=== PATIENT | male | born 1980 | race Caucasian/White ===

== ENCOUNTER → 2018-05-19 10:06 | Outpatient (CLI) | payer OTHER, SELFPAY ==
--- NOTE | 2018-05-19 | DI.US.S_ITS ---
PROCEDURE: US THYROID INDICATIONS: LEFT THYROID MASS TECHNIQUE: Real-time scanning was performed of the thyroid gland, with image documentation. COMPARISON: None. FINDINGS: Right: Thyroid lobe measures 1.5 x 1.6 x 4.9 cm, and is homogeneous in echotexture. Left: Thyroid lobe measures 0.9 x 1.6 x 4.5 cm, and is homogenous in echotexture. Isthmus: 3 mm thick. Nodule number: 1 Location: Right mid posteriorly Size: 6 x 8 x 9 mm . Composition: Solid Echogenicity: Hypoechoic Shape: Oval Margins: Smooth Echogenic foci: Punctate Total points: 5 ACR TI-RADS category: 4 Nodule number: 2 Location: Left Isthmus Size: 0.7 x 1.4 x 2.1 cm. Composition: Solid Echogenicity: Hypoechoic Shape: Oval Margins: Smooth Echogenic foci: Punctate Total points: 5 ACR TI-RADS category: 4 IMPRESSION: 1. Category 4 nodule in the right lobe of thyroid is subcentimeter in size. No biopsy indicated. 2. Category 4 nodule in the left Isthmus exceeds 1.5 cm in maximum diameter. Ultrasound guided FNA sampling recommended. ACR TI-RADS definitions and recommendations: TI-RADS 1 (benign): 0 points. FNA not needed. TI-RADS 2 (not suspicious): 2 points. FNA not needed. TI-RADS 3 (mildly suspicious): 3 points. * FNA if 2.5 cm or larger, follow up if 1.5 cm or larger (at 1, 3, and 5 years). TI-RADS 4 (moderately suspicious): 4-6 points. * FNA if 1.5 cm or larger, follow up if 1 cm or larger (at 1, 2, 3, and 5 years). TI-RADS 5 (highly suspicious): 7 points or more. * FNA if 1 cm or larger, follow up if 0.5 cm or larger (every year for 5 years). Dictated by: Tom Livingston M.D. on 05/19/2018 at 11:39 Approved by: Tom Livingston M.D. on 05/19/2018 at 11:45
== END ==
PROVIDERS: PCP Family Medicine; Visit Provider Otolaryngology
DX: E04.2 Nontoxic multinodular goiter (principal)
CPT/HCPCS: 76536

== ENCOUNTER → 2018-06-21 08:45 | Outpatient (CLI) | payer OTHER, SELFPAY ==
--- NOTE | 2018-06-21 | PATH_ITS ---
Note [facility] Accession Number: [id number] TESTS RESULT FLAG UNITS REF RANGE LAB Clinician Provided Cytology Information No. of containers..01 ThinPrep Vial No. of containers..08 Previously Prepared Cytology Slide 01 LEFT THYROID NODULE DIAGNOSIS: [A] 02 LEFT THYROID NODULE SUSPICIOUS FOR MALIGNANCY. B[place] CATEGORY V. SUSPICIOUS FOR PAPILLARY CARCINOMA. SPECIMEN CONSISTS OF FOLLICULAR CELLS WITH NUCLEAR ENLARGEMENT, NUCLEAR PALLOR WITH GROOVES. INTRANUCLEAR PSEUDOINCLUSIONS ARE RARE. THIS PATTERN IS SUSPICIOUS FOR PAPILLARY CARCINOMA. Pathologist ICD10: 02 R89.6 02 Oneil Ramírez MD, Pathologist NPI- [id number] Demetrius Jimenez, Dtp Operator ([facility]) 01 30 CC, PINK, CLEAR RECEIVED: 4 ALCOHOL FIXED AND 4 QUICK STAINED SLIDES. /VDU FLAG LEGEND: L-Low Normal,H-High Normal,LL-Alert Low,HH-Alert High <-Panic Low,>-Panic High,A-Abnormal,AA-Critical Abnormal Performed at: 01 =Z [facility] [address], [place] [address] Devonte Chanel MD, [address] [facility] [address] [place] [id number] Maxim Trujillo MD, Performed at: 01 [facility] [address], [place], [place] [id number] MD Devonte Chanel MD Phone: [phone]
--- NOTE | 2018-06-21 | DI.US.S_ITS ---
PROCEDURE: US FINE NEEDLE ASPIRATION INDICATIONS: THYROID NODULE TECHNIQUE: The indications, alternatives, benefits, risks, and complications of the procedure were explained to the patient. Written informed consent was obtained and placed in the chart. The thyroid region was examined sonographically and a site was chosen for ultrasound guided percutaneous sampling. The skin was prepared and draped in the usual fashion, and anesthetized with 1% lidocaine infiltrated from the skin down to the thyroid gland. Multiple passes were then performed, with contents emptied into an appropriate pathology specimen container. A bandage was applied to the area of access at completion of the study. COMPARISON: [facility], US, US THYROID, 05/19/2018, 10:43. FINDINGS: Location(s) of lesion(s) sampled: Left thyroid lobe, middle third, near the isthmus [place]: 25 gauge hypodermic needles. Number of passes: 5 Medications: 1% lidocaine for local anaesthesia. Complications: None. IMPRESSION: Successful ultrasound-guided thyroid nodule fine needle aspiration, with cytology results pending. Please see chart below for management recommendations based on cytology results. [place] [facility] ReportingRecommendationsNon-diagnostic* Repeat US-guided FNA, with on-site cytology evaluation if possible. * Repeated non-diagnostic nodules without high suspicion US features: close observation vs surgical consult. * Consider surgery if nodule has high suspicion US features, grows >20% in 2 dimensions on followup, or patient has clinical risk factors for malignancy. Benign* If nodule has high suspicion US features: repeat US and FNA within 12 months. * If nodule has low to intermediate suspicion US features: repeat US at 12-24 months. If nodule grows (20% increase in at least 2 dimensions, with minimal increase of 2 mm or >50% change in volume), or development of new suspicious US features, then repeat FNA or continue followup. * If nodule has very low suspicion US features: followup US at >24 months. Atypia of undetermined significance, follicular lesion of undetermined significanceRepeat FNA, molecular testing, followup US, or surgical consult.Follicular neoplasm, suspicious for follicular neoplasmSurgical consult; also consider molecular testing. Suspicious for malignancySurgical consult.MalignantSurgical consult. Dictated by: Misha Lee M.D. on 06/21/2018 at 11:53 Approved by: Misha Lee M.D. on 06/21/2018 at 11:54
== END ==
PROVIDERS: PCP Family Medicine; Visit Provider Otolaryngology
DX: E04.1 Nontoxic single thyroid nodule (principal)
CPT/HCPCS: 10022; 76942

== ENCOUNTER → 2018-07-28 10:42 | Outpatient (CLI) | payer OTHER, SELFPAY ==
--- NOTE | 2018-07-28 | DI.US.S_ITS ---
PROCEDURE: US SOFT TISSUE HEAD AND NECK INDICATIONS: LYMPHADENOPATHY TECHNIQUE: Real-time scanning was performed of the neck region of interest, with image documentation. COMPARISON: [facility], , US FINE NEEDLE ASPIRATION, 06/21/2018, 9:40. [facility], , US THYROID, 05/19/2018, 10:43. FINDINGS: There are prominent lymph nodes seen bilaterally. On the left in the submandibular region there is a 2.1 x 0.7 x 1.8 cm lymph node with minimal internal vascularity. At the area adjacent to the jugular vein anteriorly on the left there is a 0.4 x 0.7 x 2.0 cm lymph node with mild increased vascularity. On the right at the submandibular area there is a 0.8 x 2.9 x 3.6 cm without elevated vascularity and adjacent to the anterior aspect of the right jugular vein there is a 2.1 x 0.4 x 1.0 cm lymph node with mildly increased vascularity. IMPRESSION: Lymph nodes that appear prominent in size, which may simply be reactive lymph nodes, are noted with the largest at the right submandibular area measuring up to 0.8 x 3.6 x 2.9 cm. Depending on the clinical status followup by sequential physical examination may be warranted, versus surgical excision for histology, or fine needle cytology aspiration. Dictated by: Misha Lee M.D. on 07/28/2018 at 13:56 Approved by: Misha Lee M.D. on 07/28/2018 at 14:00
== END ==
PROVIDERS: Visit Provider Otolaryngology
DX: R59.0 Localized enlarged lymph nodes (principal)
CPT/HCPCS: 76536

== ENCOUNTER → 2018-07-29 08:43 | Oncology outpatient (ONC) | payer OTHER, SELFPAY ==
[2018-07-29 09:21] VITALS: BP 115/71; PULSE 87; RESP 18; TEMP 36.2; O2SAT 97
--- NOTE | 2018-07-29 09:49 | ONC.CONS ---
History of Present Illness - Data of Consult Primary Care Provider: Kade Dumont MD - Consult Narrative Reason for consult: Left thyroid nodule suspicious for papillary carcinoma. Narrative: Tom Garza is a 37 year old male without significant past medical history except hyperlipidemia. Patient reported that probably around January or March of 2018, he noticed a left-sided thyroid nodule. He was evaluated initially by Dr. Quincy Gamble who referred the patient to Dr. Aubrey Krishnan. Patient underwent thyroid ultrasound study on May 19, 2018 showing dominant nodule in the left isthmus 2.1 cm, solid, hyperechoic with punctate calcifications but smooth margins, and a smaller nodule in the right side less than 1 cm. And on June 21, 2018 patient underwent fine-needle aspiration under the ultrasound guidance of the left medial lobe/isthmus nodule. And the cytology showed Betheda category 5, suspicious for malignancy, possible papillary. On July 28, 2018 patient underwent ultrasound study of the soft tissue of the head and neck. At this study showed lymph nodes that appear prominent in size which may simply be reactive lymph nodes with the largest at the right submandibular area measuring up to 0.8 x 3.6 x 2.9 cm. Clinically patient is largely asymptomatic except he said mildly fatigued recently. He denies any weight loss denies any sweating denies any palpitation denies any nausea or vomiting. No diarrhea or constipation. CC: Marcia Watts MD Patient reports pain?: No Home Medications and Allergies Home Medications Medication Instructions Recorded Confirmed Type No Known Home Medications 04/02/18 07/09/18 History Allergies Allergy/AdvReac Type Severity Reaction Status Date / Time No Known Allergies Allergy Uncoded 02/03/18 12:48 Medical History - Medical, Surgical, Family History Medical History: Medical History (Last Updated 07/29/18 @ 09:51 by Marcia Watts MD) Knee pain (Acute) Mass in neck (Acute) Neoplasm of uncertain behavior (Chronic) Status post appendectomy () Onset Date: 10/30/17 Hyperlipidemia Depression Onset Date: 2006 Tinnitus of both ears Onset Date: 2006 Chickenpox Onset Date: Unknown Surgical History: Surgical History (Last Reviewed 04/02/18 @ 12:00 by Quincy Cameron MD) Hx of appendectomy Onset Date: 09/2017 Family History: Family History (Last Reviewed 04/02/18 @ 12:00 by Quincy Cameron MD) Father Age: 69 Leukemia High cholesterol Grandfather Heart disease Stroke Grandfather Heart disease Sister Family history of thyroid problem Sister Arthritis - Social History Smoking Status: Never smoker Review of Systems All systems PM: reviewed and no additional remarkable complaints except as stated Exam Vital signs: Last Vital Signs Temp 97.2 F L 07/29/18 09:21 Pulse 87 07/29/18 09:21 Resp 18 07/29/18 09:21 BP 115/71 07/29/18 09:21 Pulse Ox 97 07/29/18 09:21 Narrative: ECO Constitutional: Well developed, well nourished, not in any acute respiratory distress, average body habitus, well groomed, pleasant and cooperative. HEENT: Normocephalic atraumatic. Extraocular muscle movement intact. Pupils are round, equal and reactive to light and accommodations. Anicteric sclera. No hearing difficulty; Oral mucus membrane moist and without ulcers. Neck: Supple, symmetrical, and tracheal midline; A 1 cm nodule palpable in the left thyroid gland, non-tender, and freely movable. Respiratory: No use of accessory muscles. Clear to auscultation, and no wheezes or rales or rubs. Cardiovascular: Regular rate and rhythm, S1 and S2 normal, no murmurs gallops or rubs. No JVD. No pitting edema of lower extremities. Abdomen: Soft, nontender, non-distended, bowel sounds normal, no palpable organomegaly, no hernia, no palpable masses. Lower extremities: No palpable pedal edema. Lymphatic: no palpable lymph nodes in the neck, axillae, or groins. Musculoskeletal: normal gait and station, no clubbing, no cyanosis, no pitting edema. Skin: no rashes, no ulcers, no petechiae Neurological: Awake and alert and oriented x3. CN II-XII grossly intact. No focal motor or sensory deficit. Psychiatric: Good judgment, good insight, normal affect, normal thought process, cooperative, no depression, no anxiety. Results - Labs Reviewed. Assessment and Plan (1) Thyroid nodule Current visit: Yes Status: Acute Left thyroid nodule suspicious for papillary carcinoma after a fine-needle aspiration. I talked with patient that I would highly recommend that patient continue follow-up with Dr. Aubrey Krishnan for discussion of surgical removal. I also encouraged the patient to follow up with Dr. Maldonado, the productivity engineer for evaluation. I talked with the patient that it is the recommendation from NCCN guidelines that surgery be the treatment of choice followed by evaluation for the indication for possible radio iodine treatment. If it is a radical with total thyroidectomy, patient will lead lifelong levothyroxine replacement therapy. Forty thyroid carcinoma, patient really will have a good prognosis. Patient voiced understanding. I have ordered labs including CBC, CMP, and a thyroid globulin antibody, at thyroid globulin protein level. I will have the patient come back in about 4 weeks and we will repeat the same set of labs.
--- NOTE | 2018-07-30 10:01 | ONC.NAV ---
Late Entry: Visit 07/29/18 Description: New Pt Intro Activity: Met with pt briefly prior to his initial provider consult visit. Pt recently had a biopsy of a nodule found on his thyroid gland. He's here today to consult with Dr. Watts about recommendations for next steps. Introduced myself as the Patient Rafael/ETCHER HAND, provided services card, and just briefly discussed available resources and support available. No immediate needs were identified at this time. Plan: ETCHER HAND encouraged pt to contact me in the future, should he have any further questions or needs at that time.
== END ==
PROVIDERS: PCP Student in an Organized Health Care Education/Training Program; Visit Provider Internal Medicine Hematology & Oncology
DX: E04.1 Nontoxic single thyroid nodule (principal)
CPT/HCPCS: 99203; 99213

== ENCOUNTER → 2018-08-03 08:29 | Outpatient (CLI) | payer OTHER, SELFPAY ==
[2018-08-03 08:59] LABS: Add Manual Diff / Slide Review NO; Basophils Percent Auto 0.8 % (0-2); Eosinophils Percent Auto 2.9 % (2-4); Hematocrit 44.5 % (41-53); Hemoglobin 15.1 g/dL (13.5-17.5); Lymphocytes Percent Auto 30.2 % (25-40); Mean Corpuscular HGB Conc 33.8 % (30-36); Mean Corpuscular Hemoglobin 30.9 PG (26-34); Mean Corpuscular Volume 91.4 fL (80-100); Monocytes Percent Auto 8.1 % (3-14); Neutrophils Absolute Auto 2600 /uL (3000-5900); Platelet Count 229 X10^3/uL (150-400); Red Blood Cell Count 4.87 X10^6/uL (4.5-5.9); Red Cell Distribution Width 12.4 % (11.6-14.8); White Blood Cell Count 4.5 X10^3/uL (4.5-11.0)
[2018-08-03 09:19] LABS: Alanine Aminotransferase 25 IU/L (21-72); Albumin 4.4 g/dL (3.5-5.0); Albumin Globulin Ratio 1.6 (1.0-2.8); Alkaline Phosphatase 45 U/L (38-126); Aspartate Aminotransferase 21 IU/L (17-59); BUN Creatinine Ratio 14.3 (6-22); Bilirubin Total 0.9 mg/dL (0.2-1.3); Blood Urea Nitrogen 10 mg/dL (9-20); Calcium 9.3 mg/dL (8.4-10.2); Carbon Dioxide 33 mmol/L (22-32); Chloride 102 mmol/L (98-107); Estimated Glomerular Filt Rate > 60.0 mL/min (>60); Globulin 2.8 g/dL (1.7-4.1); Glucose 88 mg/dL (70-100); HEMOLYSIS 23 (0-50); Potassium 4.5 mmol/L (3.4-5.1); Sodium 142 mmol/L (137-145); Total Protein 7.2 g/dL (6.3-8.2)
[2018-08-03 10:38] LABS: Thyroid Stimulating Hormone 0.89 uIU/mL (0.47-4.68)
[2018-08-03 19:46] LABS: Free T3, Triiodothyronine Free 4.06 pg/mL (2.77-5.27); Free T4, Direct Thyroxine 1.07 ng/dL (0.78-2.19)
[2018-08-04 15:02] LABS: Anti Thyroglobulin Antibody < 1 IU/mL (< 2); Thyroid Peroxidase Antibodies < 1 IU/mL (< 9)
[2018-08-04 17:55] LABS: Triiodothyronine T3 Total 117 ng/dL (76-181)
== END ==
PROVIDERS: PCP Student in an Organized Health Care Education/Training Program; Visit Provider Internal Medicine Hematology & Oncology
DX: E04.1 Nontoxic single thyroid nodule (principal)
CPT/HCPCS: 36415; 80053; 84432; 84439; 84443; 84480; 84481; 85025; 86376; 86800

== ENCOUNTER → 2020-08-31 13:27 | Outpatient (CLI) | payer OTHER, SELFPAY ==
[2020-09-03 07:47] LABS: COVID19 Sendout Not Detected (Not Detect)
== END ==
PROVIDERS: PCP Student in an Organized Health Care Education/Training Program; Visit Provider Physician Assistant
DX: Z11.59 Encounter for screening for other viral diseases (principal)
CPT/HCPCS: 87635

== ENCOUNTER → 2021-01-23 07:59 | Outpatient (CLI) | payer OTHER, SELFPAY ==
[2021-01-23] MEDS: COVID-19 VACC #1, MRNA(MOD) 100 MCG/0.5 ML VIAL IM (08:06)
== END ==
PROVIDERS: PCP Student in an Organized Health Care Education/Training Program; Visit Provider Internal Medicine
DX: Z23 Encounter for immunization (principal)
CPT/HCPCS: 0011A; 91301

== ENCOUNTER → 2021-02-20 07:50 | Outpatient (CLI) | payer OTHER, SELFPAY ==
[2021-02-20] MEDS: COVID-19 VACC #2, MRNA(MOD) 100 MCG/0.5 ML VIAL IM (07:58)
== END ==
PROVIDERS: PCP Student in an Organized Health Care Education/Training Program; Visit Provider Internal Medicine
DX: Z23 Encounter for immunization (principal)
CPT/HCPCS: 0012A; 91301

== ENCOUNTER → 2023-09-04 08:26 | Outpatient (CLI) | payer OTHER, SELFPAY ==
[2023-09-04 08:53] LABS: Add Manual Diff / Slide Review NO; Basophils Absolute Auto 100 /uL (0-100); Basophils Percent Auto 0.9 % (0-2); Eosinophils Absolute Auto 100 /uL (0-450); Eosinophils Percent Auto 2.6 % (2-4); Hematocrit 41.9 % (41-53); Hemoglobin 14.1 g/dL (13.5-17.5); Lymphocytes Absolute Auto 1900 /uL (1100-4500); Lymphocytes Percent Auto 33.4 % (25-40); Mean Corpuscular HGB Conc 33.8 % (30-36); Mean Corpuscular Hemoglobin 31.1 PG (26-34); Monocytes Absolute Auto 500 /uL (0-900); Monocytes Percent Auto 8.3 % (3-14); Neutrophils Absolute Auto 3100 /uL (1500-7000); Neutrophils Percent Auto 54.8 % (50-75); Platelet Count 283 X10^3/uL (150-400); Red Blood Cell Count 4.55 X10^6/uL (4.5-5.9); Red Cell Distribution Width 12.7 % (11.6-14.8); White Blood Cell Count 5.6 X10^3/uL (4.5-11.0)
[2023-09-04 09:05] LABS: Hemoglobin A1C% w Est Avg Glu 5.5 % (4.0-6.0)
[2023-09-04 09:25] LABS: Alanine Aminotransferase 15 IU/L (<50); Albumin 4.1 g/dL (3.5-5.0); Albumin Globulin Ratio 1.6 (1.0-2.8); Alkaline Phosphatase 43 U/L (38-126); Aspartate Aminotransferase 18 IU/L (17-59); BUN Creatinine Ratio 17.3 (6-22); Bilirubin Total 0.5 mg/dL (0.2-1.3); Blood Urea Nitrogen 13 mg/dL (9-20); Calcium 9.6 mg/dL (8.4-10.2); Carbon Dioxide 30 mmol/L (22-32); Chloride 105 mmol/L (98-107); Cholesterol 193 mg/dL (140-199); Estimated Glomerular Filt Rate > 60 mL/min (>60); Globulin 2.5 g/dL (1.7-4.1); Glucose 90 mg/dL (70-100); HDL Cholesterol 42 mg/dL (40-60); HEMOLYSIS < 15 (0-50); LDL Cholesterol Calculated 137 mg/dL (<100); Potassium 4.6 mmol/L (3.4-5.1); Sodium 141 mmol/L (137-145); Total Protein 6.6 g/dL (6.3-8.2); Triglycerides 71 mg/dL (35-150)
== END ==
PROVIDERS: PCP Family Medicine; Referring Provider Family Medicine; Visit Provider Family Medicine
DX: Z00.00 Encounter for general adult medical examination without abnormal findings (principal); E78.2 Mixed hyperlipidemia; E03.9 Hypothyroidism, unspecified
CPT/HCPCS: 36415; 80053; 80061; 83036; 85025

== ENCOUNTER → 2024-03-09 08:41 | Outpatient (CLI) | payer OTHER, SELFPAY ==
--- NOTE | 2024-03-09 08:43 | DI.RAD.S_ITS ---
PROCEDURE: XR CHEST 2V INDICATIONS: Cough TECHNIQUE: 2 views of the chest were acquired. COMPARISON: None. FINDINGS: Surgical changes and devices: None. Lungs and pleura: Subtle pulmonary radiopacities are present at the right lung base only visualized on the frontal view. Mediastinum: Mediastinal contours are normal. Heart size is normal. Bones and chest wall: No suspicious bony abnormalities. Soft tissues appear unremarkable. IMPRESSION: Right basilar pulmonary radiopacities, likely within the right middle lobe. Short interval followup is recommended with resolution of the patient's symptoms to ensure there is no underlying pulmonary neoplasm. Dictated by: Nasra Montanez M.D. on 03/09/2024 at 9:57 Approved by: Nasra Montanez M.D. on 03/09/2024 at 10:19
== END ==
PROVIDERS: PCP Family Medicine; Referring Provider Nurse Practitioner Family; Visit Provider Nurse Practitioner Family
DX: R05.9 Cough, unspecified (principal)
CPT/HCPCS: 71046

== ENCOUNTER → 2025-01-10 07:27 | Outpatient (CLI) | payer OTHER, SELFPAY ==
[2025-01-10 08:10] LABS: Add Manual Diff / Slide Review NO; Basophils Absolute Auto 100 /uL (0-100); Basophils Percent Auto 1.2 % (0-2); Eosinophils Absolute Auto 100 /uL (0-450); Eosinophils Percent Auto 3.2 % (2-4); Hematocrit 44.7 % (41-53); Lymphocytes Absolute Auto 1700 /uL (1100-4500); Lymphocytes Percent Auto 36.9 % (25-40); Mean Corpuscular HGB Conc 33.5 % (30-36); Mean Corpuscular Volume 92.7 fL (80-100); Monocytes Absolute Auto 400 /uL (0-900); Monocytes Percent Auto 8.7 % (3-14); Neutrophils Absolute Auto 2300 /uL (1500-7000); Platelet Count 245 X10^3/uL (150-400); Red Blood Cell Count 4.82 X10^6/uL (4.5-5.9); Red Cell Distribution Width 12.9 % (11.6-14.8); White Blood Cell Count 4.6 X10^3/uL (4.5-11.0)
[2025-01-10 08:54] LABS: BUN Creatinine Ratio 17.7 (6-22); Blood Urea Nitrogen 14 mg/dL (9-20); Calcium 9.5 mg/dL (8.4-10.2); Carbon Dioxide 30 mmol/L (22-32); Chloride 102 mmol/L (98-107); Cholesterol 235 mg/dL (140-199); Estimated Glomerular Filt Rate > 60 mL/min (>60); Glucose 81 mg/dL (70-100); HDL Cholesterol 48 mg/dL (40-60); HEMOLYSIS < 15 (0-50); LDL Cholesterol Calculated 171 mg/dL (<100); Potassium 4.3 mmol/L (3.4-5.1); Sodium 138 mmol/L (137-145); Triglycerides 79 mg/dL (35-150)
[2025-01-10 09:11] LABS: Free T3, Triiodothyronine Free 3.66 pg/mL (2.77-5.27)
[2025-01-10 09:25] LABS: Thyroid Stimulating Hormone 2.47 uIU/mL (0.47-4.68)
== END ==
PROVIDERS: PCP Family Medicine; Referring Provider Family Medicine; Visit Provider Family Medicine
DX: E03.9 Hypothyroidism, unspecified (principal); E78.2 Mixed hyperlipidemia; Z13.9 Encounter for screening, unspecified
CPT/HCPCS: 36415; 80048; 80061; 84439; 84443; 84481; 85025